=== PATIENT | female | born 1985 | race Caucasian/White ===

== ENCOUNTER 2021-10-26 07:45 | Inpatient (IN) | payer OTHER ==
[2021-10-26] MEDS ORDERED: CITRIC ACID/SODIUM CITRATE 30 ML UNIT-DOSE CUP PO ONE (08:24)
[2021-10-26] MEDS ORDERED: PROMETHAZINE HCL 25 MG/1 ML VIAL IVPUSH ONE (08:24)
[2021-10-26] MEDS ORDERED: ELECTROLYTE-148 SOLN 1,000 ML IV SCH (08:30)
[2021-10-26 09:09] VITALS: BMI 35.0
[2021-10-26] MEDS ORDERED: morphine SULFATE/PF 1 MG/2 ML (2cc Syringe - QUVA) EP ONE (09:53)
[2021-10-26] MEDS ORDERED: PROPOFOL 20 ML ONE (10:12)
[2021-10-26] MEDS ORDERED: SUCCINYLCHOLINE CHLORIDE 200 MG/10 ML SYRINGE ONE (10:12)
[2021-10-26] MEDS ORDERED: ceFAZolin SODIUM 1 GM VIAL ONE (10:13)
[2021-10-26] MEDS ORDERED: OXYTOCIN 10 UNITS/ML VIAL ONE ×2 (10:13→10:40)
[2021-10-26] MEDS ORDERED: AZITHROMYCIN IVPB 500 MG/250 ML BAG IVPB ONE (10:51)
[2021-10-26] MEDS ORDERED: OXYTOCIN 20 UNITS in 0.9% NS 20 UNIT/1,000 ML INFUS.BAG IV SCH (15:00)
[2021-10-26] MEDS ORDERED: OXYTOCIN 20 UNITS in 0.9% NS 20 UNIT/1,000 ML INFUS.BAG IV ONE (15:16)
[2021-10-26] MEDS: IBUPROFEN 600 MG TABLET (FP) PO SCH ×3 (15:42→22:07)
[2021-10-26] MEDS: ACETAMINOPHEN 325 MG TABLET (FP) PO SCH ×3 (15:42→22:08)
[2021-10-26] MEDS: ONDANSETRON 4 MG/2 ML VIAL IVPUSH PRN ×2 (16:20→22:21)
[2021-10-27] MEDS: IBUPROFEN 600 MG TABLET (FP) PO SCH ×5 (04:00→22:11)
[2021-10-27] MEDS: ACETAMINOPHEN 325 MG TABLET (FP) PO SCH ×5 (04:00→22:11)
[2021-10-28] MEDS: IBUPROFEN 600 MG TABLET (FP) PO SCH ×3 (04:10→16:07)
[2021-10-28] MEDS: ACETAMINOPHEN 325 MG TABLET (FP) PO SCH ×3 (04:11→16:00)
[2021-10-28] MEDS ORDERED: ACETAMINOPHEN 325 MG TABLET (FP) PO PRN (20:35)
[2021-10-28] MEDS ORDERED: IBUPROFEN 200 MG TABLET PO PRN (20:39)
[2021-10-29] MEDS ORDERED: MAG HYDROX/AL HYDROX/SIMETH 30 ML UNIT-DOSE CUP PO ONE (10:15)
[2021-10-30 08:15] VITALS: BP 129/89; PULSE 75; TEMP 97.9
[2021-10-30] MEDS ORDERED: SIMETHICONE 80 MG TAB.CHEW (FP) PO PRN (09:06)
[2021-10-30] MEDS ORDERED: BISACODYL 10 MG SUPP.RECT PR PRN (09:06)
== END 2021-10-30 13:05 | disposition home or self-care (01) | DRG 540 ==
LOC: JLDR 07:45 → J3W 15:25
PROVIDERS: ADMIT Obstetrics & Gynecology; ATTEND Obstetrics & Gynecology
PROC: 10D00Z1 Extraction of Products of Conception, Low, Open Approach (ICD-10-PCS; principal; 2021-10-26)
DX: O34.29 Maternal care due to uterine scar from other previous surgery (principal); Z3A.38 38 weeks gestation of pregnancy; Z37.0 Single live birth
CPT/HCPCS: 86850; 86900; 86901; 88307-TC; C9803; U0003; U0005